=== PATIENT | female | born 1940 | race Two or more races ===

== ENCOUNTER 2017-04-07 10:30 | Outpatient (RCR) ==
--- NOTE | 2017-03-19 17:03 | RS.OPPTDN ---
Subjective Date of Note: 03/19/17 Visit #: 5 Date of Evaluation: 03/03/17 Payer Source: MEDICARE Treatment Diagnosis: Right ankle pain, ankle stiffness Current Subjective/complaints:: Patient says she stood for a long period cooking for mandaen last night and had increased pain, but felt good after her therapy appt and says she is eager to continue with exercise/begin ultrasound. Pain Assessment - Pain Description Pain Location: right ankle/foot (laterally) Current Pain Intensity: stiffness/ache, elevated pain today - Treatment Modality: Ultrasound Parameters/Method Applied: Pulsed @ 20% @ 0.6 w/cm2 x 12 mins surrounding the R lateral malleoli and lateral aspect arch Patient Position: Supine - Heat/Cryotherapy Treatment: Hot Pack (15 mins to the heel and R lateral arch in supine) Interventions - Exercise/Activities/Manual Therapy Exercises/Activities: Patient receives PrOM/AROM of the R foot all dir. Continued with manual isometrics all dir 2x5. HS stretching to L. Progressed to red tband all dir 2x10 reps. Sitting at EOB: DF/PF/heel raises x 10. Reviewed HEP. Total minutes of Exercise: 17 Manual Therapy: NA HOME EXERCISE PROGRAM: alphabet ankle AROM ex's, heelcord stretch with towel and against the wall, plantar fascia stretch - Charges Total Direct Minutes: 29 Total Treatment Time: 54 Procedures billed for this date of service:: hp, u/s, ex Assessment: Modified treatment to include pulsed u/s to assist with swelling, inflammation, and possible fracture healing. Patient describing increased activity level last night causing elevated pain. However, she is experiencing pain relief after therapy and motivated to improve her level of function and to be able to stand longer. She is able to demo increased flexibility to the R foot all dir especially with DF painfree. Patient Education: Home Exercise Program, Activity Modification Patient demonstrates compliance with HEP?: Yes Short Term Goals Goal #1: Pt independent and compliant with initial HEP. Goal to be met by: 03/17/17 Progress towards Goal:: Progressing Goal #2: Right ankle strength 4+/5 throughout. Goal to be met by: 03/24/17 Progress towards Goal:: Progressing Goal #3: Right ankle AROM equal to the left. Goal to be met by: 03/24/17 Progress towards Goal:: Progressing [facility] Goals Goal #1: Pt knows HEP and to continue ex's to maintain functional level at D/C. Goal to be met by: 04/22/17 Goal #2: Score on LE functional scale improved to <19% impairment. Goal to be met by: 04/22/17 Goal #3: Pt to tolerate amb. community distances without right ankle/foot discomfort Goal to be met by: 04/22/17 Goal #4: Pt to ambulate with minimal gait deviation on right LE. Goal to be met by: 04/22/17 Plan PLAN OF CARE EXPIRES ON:: 04/22/17 ORDER # VISITS AND/OR THROUGH DATE: 04/22/17 PLAN: Continue Plan of Care
--- NOTE | 2017-03-23 16:34 | RS.OPPTDN ---
Subjective Date of Note: 03/23/17 Visit #: 6 Date of Evaluation: 03/03/17 Payer Source: MEDICARE Treatment Diagnosis: Right ankle pain, ankle stiffness Current Subjective/complaints:: Patient says that last treatment seemed to help. She is eager to continue with u/s. Pain Assessment - Pain Description Pain Location: right ankle/foot (laterally) Current Pain Intensity: stiffness/ache, elevated pain today - Treatment Modality: Ultrasound Parameters/Method Applied: Pulsed u/s @ 20% 0.5 w/cm2 x 13 mins to the R lateral malleoli and lateral arch Patient Position: Supine - Heat/Cryotherapy Treatment: Hot Pack (around the lateral R foot and heel x15 mins supine) Interventions - Exercise/Activities/Manual Therapy Exercises/Activities: Patient receives PrOM/AROM of the R foot all dir. Continued with manual isometrics all dir 2x5. HS stretching to L. Progressed to red tband all dir 2x10 reps. Total minutes of Exercise: 13 Manual Therapy: NA HOME EXERCISE PROGRAM: alphabet ankle AROM ex's, heelcord stretch with towel and against the wall, plantar fascia stretch - Charges Total Direct Minutes: 26 Total Treatment Time: 41 Procedures billed for this date of service:: hp, u/s, ex Assessment: Patient demo reduced puffiness to the R lateral malleoli today. She is able to WB and ambulating better the past 1-2 days. Continue modalities and advance therex. Patient Education: Body/Joint mechanics, Education of Plan of Care Patient demonstrates compliance with HEP?: Yes Short Term Goals Goal #1: Pt independent and compliant with initial HEP. Goal to be met by: 03/17/17 Progress towards Goal:: Progressing Goal #2: Right ankle strength 4+/5 throughout. Goal to be met by: 03/24/17 Progress towards Goal:: Progressing Goal #3: Right ankle AROM equal to the left. Goal to be met by: 03/24/17 Progress towards Goal:: Progressing Half-Way Goals Goal #1: Pt knows HEP and to continue ex's to maintain functional level at D/C. Goal to be met by: 04/22/17 Goal #2: Score on LE functional scale improved to <19% impairment. Goal to be met by: 04/22/17 Goal #3: Pt to tolerate amb. community distances without right ankle/foot discomfort Goal to be met by: 04/22/17 Goal #4: Pt to ambulate with minimal gait deviation on right LE. Goal to be met by: 04/22/17 Plan PLAN OF CARE EXPIRES ON:: 04/22/17 ORDER # VISITS AND/OR THROUGH DATE: 04/22/17 PLAN: Patient to continue with u/s pulsed to assist with healing fx and progress therex
--- NOTE | 2017-03-25 16:28 | RS.OPPTDN ---
Subjective Date of Note: 03/25/17 Visit #: 7 Date of Evaluation: 03/03/17 Payer Source: MEDICARE Treatment Diagnosis: Right ankle pain, ankle stiffness Current Subjective/complaints:: Patient says her foot is feeling significantly better since last session. States she was able to stand and walk around longer and better yesterday. Pain Assessment - Pain Description Pain Location: right ankle/foot (laterally) Current Pain Intensity: stiffness/ache, elevated pain today - Treatment Modality: Ultrasound Parameters/Method Applied: Pulsed u/s @ 20% @ 0.6w/cm2 x 12 mins to the R lateral malleoli and distal talus. Patient Position: Supine - Heat/Cryotherapy Treatment: Hot Pack (surrounding the top and lateral portion of the foot) Interventions - Exercise/Activities/Manual Therapy Exercises/Activities: Patient receives PrOM/AROM of the R foot all dir. Continued with manual isometrics all dir 2x5. HS stretching to L. Progressed to progressed to green tband all dir 2x10 reps. Total minutes of Exercise: 16 Manual Therapy: NA HOME EXERCISE PROGRAM: alphabet ankle AROM ex's, heelcord stretch with towel and against the wall, plantar fascia stretch - Charges Total Direct Minutes: 28 Total Treatment Time: 48 Procedures billed for this date of service:: hp, u/s, ex Assessment: Patient experiencing less pain to the R foot with more prolonged WB and amb. She is eliana progression of therex well. Patient Education: Education of diagnosis, Body/Joint mechanics, Home Exercise Program Patient demonstrates compliance with HEP?: Yes Short Term Goals Goal #1: Pt independent and compliant with initial HEP. Goal to be met by: 03/17/17 Progress towards Goal:: Progressing Goal #2: Right ankle strength 4+/5 throughout. Goal to be met by: 03/24/17 Progress towards Goal:: Progressing Goal #3: Right ankle AROM equal to the left. Goal to be met by: 03/24/17 Progress towards Goal:: Progressing Network Strategist Goals Goal #1: Pt knows HEP and to continue ex's to maintain functional level at D/C. Goal to be met by: 04/22/17 Goal #2: Score on LE functional scale improved to <19% impairment. Goal to be met by: 04/22/17 Goal #3: Pt to tolerate amb. community distances without right ankle/foot discomfort Goal to be met by: 04/22/17 Goal #4: Pt to ambulate with minimal gait deviation on right LE. Goal to be met by: 04/22/17 Plan PLAN OF CARE EXPIRES ON:: 04/22/17 ORDER # VISITS AND/OR THROUGH DATE: 04/22/17 PLAN: Continue for pulsed u/s and therex
--- NOTE | 2017-03-30 16:13 | RS.OPPTDN ---
Subjective Date of Note: 03/30/17 Visit #: 8 Date of Evaluation: 03/03/17 Payer Source: MEDICARE Treatment Diagnosis: Right ankle pain, ankle stiffness Current Subjective/complaints:: Patient says her mobility is better and so is her pain. She describes stiffness in the morn and bedtime. Pain Assessment - Pain Description Pain Location: right ankle/foot (laterally) Current Pain Intensity: stiffness/ache - Treatment Modality: Ultrasound Parameters/Method Applied: Pulsed @ 0.6 w/cm2 20% x 12 mins over the R lateral malleoli and just distal to talus region Patient Position: Supine - Heat/Cryotherapy Treatment: Hot Pack (over the top of the R foot and laterally x 15 mins supine) Interventions - Exercise/Activities/Manual Therapy Exercises/Activities: Patient receives PrOM/AROM of the R foot all dir. Continued with manual isometrics all dir 2x5. HS stretching to L. Progressed to progressed to green tband all dir 2x10 reps. Standing: weight shift from heel to toe and L to R on green tband, short range minisquats on green and partial forward lunge x 10 ea. Black air pad same directions x 10 ea. Total minutes of Exercise: 24 Manual Therapy: NA HOME EXERCISE PROGRAM: alphabet ankle AROM ex's, heelcord stretch with towel and against the wall, plantar fascia stretch - Charges Total Direct Minutes: 36 Total Treatment Time: 51 Procedures billed for this date of service:: ex2, hp, u/s Assessment: Patient progressing well with eliana to increased active motion of the R foot and ability to WB and amb longer before pain makes her stop. She is able to advance to altered surface activities today without difficulty other than discomfort with forward partial lunge on green foam. Patient Education: Home Exercise Program, Activity Modification Patient demonstrates compliance with HEP?: Yes Short Term Goals Goal #1: Pt independent and compliant with initial HEP. Goal to be met by: 03/17/17 Progress towards Goal:: Met Goal #2: Right ankle strength 4+/5 throughout. Goal to be met by: 03/24/17 Progress towards Goal:: Met Goal #3: Right ankle AROM equal to the left. Goal to be met by: 03/24/17 Progress towards Goal:: Progressing Longterm Goals Goal #1: Pt knows HEP and to continue ex's to maintain functional level at D/C. Goal to be met by: 04/22/17 Progress towards goal: Progressing Goal #2: Score on LE functional scale improved to <19% impairment. Goal to be met by: 04/22/17 Comments: Reassess next session Goal #3: Pt to tolerate amb. community distances without right ankle/foot discomfort Goal to be met by: 04/22/17 Goal #4: Pt to ambulate with minimal gait deviation on right LE. Goal to be met by: 04/22/17 Plan PLAN OF CARE EXPIRES ON:: 04/22/17 ORDER # VISITS AND/OR THROUGH DATE: 04/22/17 PLAN: Continue to improve ROM in the R foot to equal the L and build strength to meet goals.
--- NOTE | 2017-04-07 16:14 | RS.OPPTDN ---
Subjective Date of Note: 04/02/17 Visit #: 9 Date of Evaluation: 03/03/17 Payer Source: MEDICARE Treatment Diagnosis: Right ankle pain, ankle stiffness Current Subjective/complaints:: Patient says she feels her foot is just going to take time to heal. She says it has been improving with therapy admitting increased mobility and decreased pain. Pain Assessment - Pain Description Pain Location: right ankle/foot (laterally) Current Pain Intensity: stiffness/ache - Treatment Modality: Ultrasound Parameters/Method Applied: Pulsed @ 0.6 w/cm2 x 10 mins to the R talus and lateral malleoli Patient Position: Supine - Heat/Cryotherapy Treatment: Hot Pack (15 mins to the top of the R foot supine) Interventions - Exercise/Activities/Manual Therapy Exercises/Activities: Patient receives PrOM/AROM of the R foot all dir. Continued with manual isometrics all dir 2x5. HS stretching to L. Progressed to progressed to green tband all dir 2x10 reps. Standing: weight shift from heel to toe and L to R on green tband, short range minisquats on green and partial forward lunge x 10 ea. Black air pad same directions x 10 ea. Large step up onto the Balance Monorail Hooker x 5. Total minutes of Exercise: 26 Manual Therapy: NA HOME EXERCISE PROGRAM: alphabet ankle AROM ex's, heelcord stretch with towel and against the wall, plantar fascia stretch - Charges Total Direct Minutes: 36 Total Treatment Time: 51 Procedures billed for this date of service:: hp, u/s, ex2 Assessment: Patient has progressed well with all therex. She demo improved strength to 4+/5 generally to the R foot. She maintains bal with SLS on altered surfaces and low level pain. Prolonged activity and standing does increase her pain level however. Patient Education: Home Exercise Program Patient demonstrates compliance with HEP?: Yes Short Term Goals Goal #1: Pt independent and compliant with initial HEP. Goal to be met by: 03/17/17 Progress towards Goal:: Met Goal #2: Right ankle strength 4+/5 throughout. Goal to be met by: 03/24/17 Progress towards Goal:: Met Goal #3: Right ankle AROM equal to the left. Goal to be met by: 03/24/17 Progress towards Goal:: Progressing [employer] Goals Goal #1: Pt knows HEP and to continue ex's to maintain functional level at D/C. Goal to be met by: 04/22/17 Progress towards goal: Progressing Goal #2: Score on LE functional scale improved to <19% impairment. Goal to be met by: 04/22/17 Goal #3: Pt to tolerate amb. community distances without right ankle/foot discomfort Goal to be met by: 04/22/17 Goal #4: Pt to ambulate with minimal gait deviation on right LE. Goal to be met by: 04/22/17 Plan PLAN OF CARE EXPIRES ON:: 04/22/17 ORDER # VISITS AND/OR THROUGH DATE: 04/22/17 PLAN: Patient to continue x 1 week to further improve pain and strength.
--- NOTE | 2017-04-08 08:56 | RS.OPPTDN ---
Subjective Date of Note: 04/07/17 Visit #: 10 Date of Evaluation: 03/03/17 Payer Source: MEDICARE Treatment Diagnosis: Right ankle pain, ankle stiffness Current Subjective/complaints:: Patient says she did too much yesterday ( cleaning her house to get in order for Thanksgiving). She expresses that she can perform all needed exercises at this point and wants to self discharge since her issue is mainly with increased activity and that she can control that if she wanted and could take breaks. - Treatment Modality: Ultrasound Parameters/Method Applied: pulsed @ 0.6 w/cm2 x 12 mins to the R talus and lateral malleoli Patient Position: Supine Interventions - Exercise/Activities/Manual Therapy Exercises/Activities: Patient receives PrOM/AROM of the R foot all dir. Continued with manual isometrics all dir 2x5. HS stretching to L. Continued with green tband all dir 2x10 reps. Standing: weight shift from heel to toe and L to R on grean foam, short range minisquats on green and partial forward lunge x 10 ea. Black air pad same directions x 10 ea. SLS on green foam and black air pad. Large step up onto the Balance [place]brillo x 5. Then applied foam pad onto Balance hop strainer for larger and altered step ups x 5. Reassessed LE Functional Scale. Total minutes of Exercise: 35 Manual Therapy: NA HOME EXERCISE PROGRAM: alphabet ankle AROM ex's, heelcord stretch with towel and against the wall, plantar fascia stretch - Objective Findings Observations,measurements,etc.: LE Functional Scale: 59/80 or 27% impairment - Charges Total Direct Minutes: 47 Total Treatment Time: 47 Procedures billed for this date of service:: ex2, u/s Assessment: Patient has demo improvement with overall R ankle pain and through LE Functional Scale. She is very consistent with HEP and has progressed with therex in the dept maintaining bal while increasing strength/stability. She should continue to improve at home being conscientious of prolonged WBing and activity. Patient Education: Home Exercise Program, Education of Plan of Care Patient demonstrates compliance with HEP?: Yes Short Term Goals Goal #1: Pt independent and compliant with initial HEP. Goal to be met by: 03/17/17 Progress towards Goal:: Met Goal #2: Right ankle strength 4+/5 throughout. Goal to be met by: 03/24/17 Progress towards Goal:: Met Goal #3: Right ankle AROM equal to the left. Goal to be met by: 03/24/17 Progress towards Goal:: Progressing Account Assistant Goals Goal #1: Pt knows HEP and to continue ex's to maintain functional level at D/C. Goal to be met by: 04/22/17 Progress towards goal: Progressing Goal #2: Score on LE functional scale improved to <19% impairment. Goal to be met by: 04/22/17 Progress towards goal: Progressing Comments: 27% Goal #3: Pt to tolerate amb. community distances without right ankle/foot discomfort Goal to be met by: 04/22/17 Progress towards goal: Progressing Goal #4: Pt to ambulate with minimal gait deviation on right LE. Goal to be met by: 04/22/17 Progress towards goal: Met Plan PLAN OF CARE EXPIRES ON:: 04/22/17 ORDER # VISITS AND/OR THROUGH DATE: 04/22/17 PLAN: Patient to continue exercises at home at this point. She requests to self discharge due to monitoring her own activity and able to manage HeP, progressing it as she eliana.
--- NOTE | 2017-04-15 16:21 | RS.OPPTDC ---
Date of Discharge: 04/07/17 Date of Evaluation: 03/03/17 Number of Visits: 10 Treatment Diagnosis: Right ankle pain, ankle stiffness Current Complaints/Gains: Patient feels she can continue her exercises on her own. She is pleased with her progress. Reports less pain and improved flexibility. Functional Outcome Measure LE Functional Scale: 59 (59/80=27% impairment) - G Codes & Severity Modifier G Codes & Modifier: MObility D/C CJ. Mobility Goal CI Source of G Code score: LE functional scale. Has improved in areas of getting in/out of bathtub and ambulating between rooms. Gait - Gait Pattern Gait Comments: Ambulates with close to symmetrical stance phase on LE's. Interventions - Exercise/Activities/Manual Therapy Exercises/Activities: NA Manual Therapy: NA HOME EXERCISE PROGRAM: alphabet ankle AROM ex's, heelcord stretch with towel and against the wall, plantar fascia stretch - Objective Findings Observations,measurements,etc.: MMT right ankle 4+/5 grossly. Demonstrates DF to 5 degrees with the knee extended. PF to 50 degrees. - Charges Total Direct Minutes: NA Total Treatment Time: NA Procedures billed for this date of service:: NA Assessment Assessment: Patient pleased with her progress and requests to continue exercises on her own to continue to progress strength and ROM. She has progressed well towards goals. Short Term Goals Goal #1: Pt independent and compliant with initial HEP. Goal to be met by: 03/17/17 Progress towards Goal:: Met Goal #2: Right ankle strength 4+/5 throughout. Goal to be met by: 03/24/17 Progress towards Goal:: Met Goal #3: Right ankle AROM equal to the left. Goal to be met by: 03/24/17 Progress towards Goal:: Partially Met [facility] Goals Goal #1: Pt knows HEP and to continue ex's to maintain functional level at D/C. Goal to be met by: 04/22/17 Progress towards goal: Met Goal #2: Score on LE functional scale improved to <19% impairment. Goal to be met by: 04/22/17 Progress towards goal: Not Met Goal #3: Pt to tolerate amb. community distances without right ankle/foot discomfort Goal to be met by: 04/22/17 Progress towards goal: Partially Met Goal #4: Pt to ambulate with minimal gait deviation on right LE. Goal to be met by: 04/22/17 Progress towards goal: Met Plan Reason for Discharge:: Self-Discharge
== END 2017-04-16 ==
PROVIDERS: ATTEND Podiatrist
DX: S82.424D Nondisplaced transverse fracture of shaft of right fibula, subsequent encounter for closed fracture with routine healing (principal)